=== PATIENT | female | born 2000 | race Caucasian/White ===

== ENCOUNTER 2021-04-30 12:59 | Inpatient (IN) ==
[2021-04-30] MEDS ORDERED: Penicillin G Potassium IV 5,000,000 UNITS in NS 0.9% 100 ml BAG 100 ML IVPB ONE (13:43)
[2021-04-30] MEDS ORDERED: Lactated Ringers 1000 ml BAG 1,000 ML IV ONE ×2 (13:43→13:50)
[2021-04-30] MEDS ORDERED: Betamethasone 6 mg/ml 5 ml VIAL IM ONE (13:43)
[2021-04-30] MEDS ORDERED: Buffered Lidocaine 1% SYRIN 1 ml INTRADERM ONE (13:43)
[2021-04-30] MEDS ORDERED: Magnesium Sulf 4 GM/100 ML IV 4,000 MG/100 ML BAG IVPB ONE (13:43)
[2021-04-30] MEDS ORDERED: Betamethasone 6 mg/ml 5 ml VIAL ONE (13:51)
[2021-04-30] MEDS ORDERED: Magnesium Sulfate OB PREMIX 40 GM/1,000 ML BAG ONE (13:52)
[2021-04-30] MEDS ORDERED: Magnesium Sulfate OB PREMIX 40 GM/1,000 ML BAG IVPB SCH ×2 (14:00)
[2021-04-30] MEDS ORDERED: Lactated Ringers 1000 ml BAG 1,000 ML IV SCH ×2 (14:00→18:00)
[2021-04-30 14:09] LABS: ABS Monocytes 0.8 10^3/ul (0-0.8); ABS Neutrophils 13.3 10^3/ul (1.5-7.7); Eosinophil % 0.3 %; Hematocrit 35 % (35-47); Hemoglobin 11.9 g/dL (12.0-16.0); Lymphocyte % 6.4 %; Mean Corpuscular HGB Conc 34 g/dL (31-36); Mean Corpuscular Hemoglobin 33 pg (27-31); Mean Corpuscular Volume 97 fL (80-97); Mean Platelet Volume 7.7 fL (7.4-10.4); Platelet Count 198 10^3/uL (150-450); Red Blood Count 3.59 10^6 /uL (3.70-4.87); Red Cell Distribution Width 13 % (10-15); White Blood Count 15.1 10^3/uL (3.5-10.8)
[2021-04-30 14:12] LABS: Urine Appearance Cloudy; Urine Bilirubin Negative (Negative); Urine Blood Negative (Negative); Urine Color Yellow; Urine Glucose Negative (Negative); Urine Ketones 2+ (Negative); Urine Nitrite Negative (Negative); Urine Protein Negative (Negative); Urine Specific Gravity 1.017 (1.002-1.030); Urine Urobilinogen Negative (Negative)
[2021-04-30 14:17] LABS: Urine Bacteria Absent (Absent); Urine Red Blood Cell Trace(0-2/hpf) (Absent); Urine Sperm Present (Absent); Urine Squamous Epithelial Cell Present (Absent); Urine White Blood Cell 2+(11-20/hpf) (Absent)
[2021-04-30 14:26] LABS: Albumin 3.7 g/dL (3.2-5.2); Albumin/Globulin Ratio 1.5 (1-3); Calcium 8.8 mg/dL (8.6-10.3); EGFR African American 203.7 (>60); EGFR Non-African American 168.3 (>60); Globulin 2.5 g/dL (2-4); Potassium 3.7 mmol/L (3.5-5.0); Total Bilirubin 0.5 mg/dL (0.2-1.0); Total Protein 6.2 g/dL (6.4-8.9)
[2021-04-30 14:32] LABS: Urine Benzodiazepine Screen None Detected (None Detect); Urine Cannabinoids Screen Presumptive Positive (None Detect); Urine Opiates Screen None Detected (None Detect)
[2021-04-30] MEDS ORDERED: Oxytocin in LR 20 UNITS/1,000 ML BAG IVPB ONE (15:16)
[2021-04-30] MEDS ORDERED: fentaNYL 100 mcg/2 ml 50 MCG/ML VIAL ONE (15:24)
[2021-04-30] MEDS ORDERED: Glycerin ADULT 2.4 gm SUPP PR PRN (17:27)
[2021-04-30] MEDS ORDERED: Dibucaine 1% OINT 28.35 GM TUBE PR PRN (17:27)
[2021-04-30] MEDS ORDERED: Witch Hazel PAD JAR TOPICAL PRN (17:27)
[2021-04-30] MEDS ORDERED: Oxytocin in LR 20 UNITS/1,000 ML BAG IVPB SCH (18:00)
[2021-05-01 05:40] LABS: Hematocrit 34 % (35-47); Hemoglobin 11.7 g/dL (12.0-16.0); Mean Corpuscular HGB Conc 34 g/dL (31-36); Mean Corpuscular Hemoglobin 33 pg (27-31); Mean Corpuscular Volume 96 fL (80-97); Mean Platelet Volume 7.5 fL (7.4-10.4); Platelet Count 222 10^3/uL (150-450); Red Blood Count 3.56 10^6 /uL (3.70-4.87); Red Cell Distribution Width 13 % (10-15); White Blood Count 22.3 10^3/uL (3.5-10.8)
[2021-05-01 06:29] LABS: ABS Basophils 0.1 10^3/ul (0-0.2); ABS Lymphocytes 0.9 10^3/ul (1.0-4.8); ABS Monocytes 0.6 10^3/ul (0-0.8); ABS Neutrophils 20.7 10^3/ul (1.5-7.7); Lymphocyte % 4.2 %
[2021-05-01 12:01] VITALS: BP 99/47
[2021-05-01] MEDS ORDERED: Varicella Virus Vaccine Live 0.5 ML VIAL SUBCUT ONE (15:45)
[2021-05-01] MEDS ORDERED: Tetan/Diph/Pertus SYR(Tdap) 0.5 ML SYR(BOOSTRIX) use SYR contains LATEX IM ONE (15:45)
== END 2021-05-01 16:35 | disposition home or self-care (01) | DRG 560 ==
LOC: MCHOBOUT 12:59 → MCHOB 13:41
PROVIDERS: ADMIT Obstetrics & Gynecology; ATTEND Obstetrics & Gynecology